=== PATIENT | male | born 1945 | race Caucasian/White ===

== ENCOUNTER → 2021-03-28 08:53 | Outpatient (CLI) | payer OTHER, SELFPAY ==
[2021-03-28 09:44] LABS: Add Manual Diff / Slide Review NO; Basophils Absolute Auto 100 /uL (0-100); Basophils Percent Auto 0.6 % (0-2); Eosinophils Absolute Auto 400 /uL (0-450); Eosinophils Percent Auto 3.3 % (2-4); Hematocrit 39.9 % (41-53); Hemoglobin 13.1 g/dL (13.5-17.5); Lymphocytes Absolute Auto 2100 /uL (1100-4500); Lymphocytes Percent Auto 17.7 % (25-40); Mean Corpuscular HGB Conc 32.9 % (30-36); Mean Corpuscular Hemoglobin 29.8 PG (26-34); Mean Corpuscular Volume 90.6 fL (80-100); Monocytes Absolute Auto 1100 /uL (0-900); Monocytes Percent Auto 9.5 % (3-14); Neutrophils Absolute Auto 8300 /uL (1500-7000); Neutrophils Percent Auto 68.9 % (50-75); Platelet Count 301 X10^3/uL (150-400); Red Blood Cell Count 4.41 X10^6/uL (4.5-5.9); Red Cell Distribution Width 12.3 % (11.6-14.8)
[2021-03-28 10:10] LABS: Erythrocyte Sedimentation Rate 71 MM/HR (0-15)
[2021-03-28 10:26] LABS: Alanine Aminotransferase 15 IU/L (<50); Albumin 3.9 g/dL (3.5-5.0); Albumin Globulin Ratio 1.4 (1.0-2.8); Alkaline Phosphatase 104 U/L (38-126); Aspartate Aminotransferase 25 IU/L (17-59); BUN Creatinine Ratio 24.8 (6-22); Bilirubin Total 0.5 mg/dL (0.2-1.3); Blood Urea Nitrogen 35 mg/dL (9-20); C-Reactive Protein Quant 2.5 mg/dL (<1.0); Calcium 9.5 mg/dL (8.4-10.2); Carbon Dioxide 24 mmol/L (22-32); Chloride 105 mmol/L (98-107); Cholesterol 109 mg/dL (140-199); Creatine Kinase 59 U/L (55-170); Estimated Glomerular Filt Rate 49.1 mL/min (>60); Globulin 2.8 g/dL (1.7-4.1); Glucose 86 mg/dL (80-110); HDL Cholesterol 34 mg/dL (40-60); HEMOLYSIS < 15 (0-50); LDL Cholesterol Calculated 44 mg/dL (<100); Potassium 4.3 mmol/L (3.4-5.1); Sodium 139 mmol/L (137-145); Total Protein 6.7 g/dL (6.3-8.2); Triglycerides 157 mg/dL (35-150)
== END ==
PROVIDERS: Family Provider Internal Medicine; PCP Internal Medicine; Referring Provider Internal Medicine; Visit Provider Internal Medicine
DX: I10 Essential (primary) hypertension (principal); I25.10 Atherosclerotic heart disease of native coronary artery without angina pectoris; M79.10 Myalgia, unspecified site
CPT/HCPCS: 36415; 80053; 80061; 82550; 85025; 85651; 86140

== ENCOUNTER → 2021-10-30 12:13 | Outpatient (CLI) | payer OTHER, SELFPAY ==
--- NOTE | 2021-10-30 12:14 | DI.US.S_ITS ---
PROCEDURE: US SCROTUM INDICATIONS: LEFT HYDROCELE TECHNIQUE: Real-time scanning was performed of the scrotum and testicles, with image documentation. Color and pulse Doppler interrogation was performed of both testicles. COMPARISON: None. FINDINGS: Right: Testicle is normal in size at 4.2 x 2.4 x 3.2 cm, and homogenous in echotexture. Epididymis is normal in overall size and morphology. Small right hydrocele. No varicoceles. Overlying scrotal skin is normal in thickness. Left: Testicle is normal in size at 4.4 x 2.6 x 3.2 cm, and homogeneous in echotexture. Epididymis is normal in overall size and morphology. Moderate-sized left hydrocele. No varicoceles. Overlying scrotal skin is normal in thickness. Doppler: Color and pulse Doppler demonstrate normal and symmetric arterial flow in both testicles. IMPRESSION: Moderate left and small right hydroceles. Dictated by: Ruth Manning MD, PhD on 10/31/2021 at 14:18 Approved by: Ruth Manning MD, PhD on 10/31/2021 at 14:19
== END ==
PROVIDERS: Family Provider Internal Medicine; PCP Internal Medicine; Referring Provider Specialist; Visit Provider Specialist
DX: N43.3 Hydrocele, unspecified (principal)
CPT/HCPCS: 76870

== ENCOUNTER → 2022-04-09 14:42 | Outpatient (CLI) | payer OTHER, SELFPAY ==
[2022-04-09 18:02] LABS: Add Manual Diff / Slide Review NO; Basophils Absolute Auto 100 /uL (0-100); Basophils Percent Auto 0.5 % (0-2); Eosinophils Absolute Auto 300 /uL (0-450); Eosinophils Percent Auto 2.5 % (2-4); Hematocrit 37.8 % (41-53); Hemoglobin 12.7 g/dL (13.5-17.5); Lymphocytes Absolute Auto 1000 /uL (1100-4500); Lymphocytes Percent Auto 8.2 % (25-40); Mean Corpuscular HGB Conc 33.5 % (30-36); Mean Corpuscular Hemoglobin 30.5 PG (26-34); Mean Corpuscular Volume 91.2 fL (80-100); Monocytes Absolute Auto 800 /uL (0-900); Monocytes Percent Auto 6.4 % (3-14); Neutrophils Absolute Auto 9800 /uL (1500-7000); Neutrophils Percent Auto 82.4 % (50-75); Platelet Count 344 X10^3/uL (150-400); Red Blood Cell Count 4.15 X10^6/uL (4.5-5.9); White Blood Cell Count 11.9 X10^3/uL (4.5-11.0)
[2022-04-09 18:39] LABS: Alanine Aminotransferase 26 IU/L (<50); Albumin 3.5 g/dL (3.5-5.0); Alkaline Phosphatase 150 U/L (38-126); Aspartate Aminotransferase 35 IU/L (17-59); BUN Creatinine Ratio 24.4 (6-22); Bilirubin Total 0.6 mg/dL (0.2-1.3); Blood Urea Nitrogen 29 mg/dL (9-20); Calcium 8.7 mg/dL (8.4-10.2); Carbon Dioxide 21 mmol/L (22-32); Chloride 105 mmol/L (98-107); Estimated Glomerular Filt Rate > 60 mL/min (>60); Globulin 3.5 g/dL (1.7-4.1); Glucose 82 mg/dL (80-110); HEMOLYSIS < 15 (0-50); Potassium 4.5 mmol/L (3.4-5.1); Sodium 137 mmol/L (137-145)
[2022-04-09 18:42] LABS: Free T4, Direct Thyroxine 1.36 ng/dL (0.78-2.19)
[2022-04-09 18:56] LABS: Thyroid Stimulating Hormone 1.63 uIU/mL (0.47-4.68)
== END ==
PROVIDERS: Family Provider Internal Medicine; PCP Internal Medicine; Referring Provider Internal Medicine; Visit Provider Internal Medicine
DX: I10 Essential (primary) hypertension (principal); R60.9 Edema, unspecified
CPT/HCPCS: 36415; 80053; 84439; 84443; 85025

== ENCOUNTER → 2022-04-14 10:52 | Outpatient (CLI) | payer OTHER, SELFPAY ==
[2022-04-14 11:50] LABS: COVID19 -Nasal RAPID Negative (Negative)
== END ==
PROVIDERS: Family Provider Internal Medicine; PCP Internal Medicine; Visit Provider Specialist
DX: K40.90 Unilateral inguinal hernia, without obstruction or gangrene, not specified as recurrent (principal); N43.3 Hydrocele, unspecified; Z20.822 Contact with and (suspected) exposure to COVID-19
CPT/HCPCS: 87635; 99215

== ENCOUNTER 2022-04-17 08:36 | Day surgery (SDC) | payer OTHER, SELFPAY ==
[2022-04-15 07:59] VITALS: BMI 27.1
[2022-04-17] VITALS (8 sets, daily range): BP systolic 115–181; BP diastolic 55–81; PULSE 52–60; RESP 14–18; TEMP 36.1–36.7; O2SAT 94–98; BMI 27.1
--- NOTE | 2022-04-17 | PATH_ITS ---
[facility] Accession Number: [id number] . 01 Material submitted: . hernia - RIGHT INGUINAL HERNIA SAC . 01 Diagnosis: Right Inguinal Hernia Sac, Excision: Fibroadipose tissue with a central empty space lined by bland mesothelial cells with reactive changes, consistent with hernia sac. Negative for atypia and malignancy. MRV 04/20/2022 1535 Local . 01 Electronically signed: . Richard Sharma MD, Pathologist NPI- [id number] . 01 Gross description: . The specimen is received in formalin, labeled with the patient's name, , and right inguinal hernia sac, and consists of a pink-fischer, membranous, disrupted sac-like structure with a small amount of attached yellow adipose tissue measuring 3.3 x 0.9 x 0.8 cm. Sectioning reveals a tin, smooth-walled, membranous structure with no lesions identified. Oil Spot Washer sections are submitted in cassette A1. ([id number]) /FRR 04/18/2022 1950 Local . 01 Pathologist provided ICD-10: K40.90 . 01 CPT . 170165 Specimen Comment: A courtesy copy of this report has been sent to [phone] Performed at: 01 [facility] [address] [place] [address] Suite [facility], [place], [place] [id number] MD Ming Longoria MD Phone: [phone]
--- NOTE | 2022-04-17 09:27 | SUR.PREOP ---
patient presents with 2+ pitting edema to RLE which has been chronic for about a month; patient is on furosemide and denies SOB or Chest pain. No current EKG on file; previous history of CABG; notified Anesthesiologist Dr Alexander; EKG orders received and placed. Notified respiratory therapy of need for Pre-op EKG.
--- NOTE | 2022-04-17 09:40 | PM.PREOP ---
Pre-operative Note COVID-19 Criteria for continued procedure: Expected advancement of disease process, Possibility delay results in more complex future surgery or treatment, Increased loss of function, Continuing or worsening of significant or severe pain, Deterioration of the patient's condition or overall health, Delay expected to result in less-positive ultimate med/surg outcome and Non-surgical alternatives not available or appropriate per current SOC Interval Note History & Physical reviewed/Exam performed by Physician: Yes Changes to H&P: No
[2022-04-17] MEDS: CEFAZOLIN 2 GM/100 ML PREMIX 100 ML IV (10:11)
[2022-04-17] MEDS: HYDROCORTISONE 100 MG/2 ML VIAL IV (10:35)
--- NOTE | 2022-04-17 10:42 | SUR.OPER ---
Supine on padded OR bed, head on pillow, arms secured on padded arm boards at <90 degrees abduction, legs uncrossed, safety belt at thigh.
[2022-04-17] MEDS: BUPIVACAINE 0.25% (PF) 30 ML, EPINEPHrine 0.15 MG INJ (10:49)
[2022-04-17] MEDS: BUPIVACAINE LIPOSOME 266 MG/20 ML VIAL INJ (10:50)
[2022-04-17] MEDS: ACETAMINOPHEN IV 1,000 MG/100 ML VIAL 400 MG IV (11:50)
[2022-04-17] MEDS: LACTATED RINGERS 1,000 ML 21 ML IV (12:00)
--- NOTE | 2022-04-17 12:42 | P.OP_ITS ---
Operative Date/Time/Diagnoses Date of procedure: 04/17/22 Time of procedure: 12:42 Pre-op diagnosis: 1. Symptomatic right inguinal hernia. 2. Symptomatic left hydrocele. Post-op diagnosis: same Procedure & Clinicians Procedure: 1. Right indirect inguinal hernia repair with mesh. 2. Left hydrocelectomy. Same procedure as scheduled: Yes Indications: 1. Symptomatic right inguinal hernia. 2. Symptomatic left hydrocele. Surgeon: Rody Roberts Click Yes if Unassisted: Yes Anesthesia Type: General and Local (1.33% Exparel diluted 50%, and 0.5% Marcaine with epinephrine.) Operative Notes Findings: 1. Right indirect inguinal hernia sac with enlarged internal ring. Small associated cord lipoma. 2. Slightly turbid, straw-colored left hydrocele fluid. For by 3 mm scrotal georgie. 3. There was evidence probable previous trauma or repetitive mild trauma resulting in dense adhesions of the tunica vaginalis to the left lateral scrotal wall. Closure Type: primary Specimen(s): other (Right inguinal hernia sac.) Applied: drain(s) (Ten Guamanian round fenestrated drain to bulb self suction.) Estimated Blood Loss (mL): 5 Blood products transfused: none Procedure in detail: The patient was positioned supine and was administered general anesthesia. The lower abdomen, genitalia, and groin were then prepped and draped in sterile fashion. After% Marcaine epinephrine was then used to infiltrate the skin and subcutaneous tissue over the right inguinal canal. Oblique incision was then made sharply through the skin and then the layers of the scalp teens fat and Deepa's fascia were divided using combination blunt cautery technique down to the the external oblique fascia. External oblique fascia was seen to be splayed medially with an enlarged external ring. External oblique fascia was then incised longitudinal its fibers over right inguinal canal. The cord was then carefully isolated and mobilized. The floor of the canal was inspected. He is in meticulous and careful blunt technique the attenuated fibers of the spermatic fascia were then opened longitudinally was fibers at the upper and inner aspect of the cord near the internal ring. The hernia sac was immediately identified. Meticulous blunt and cautery dissection were then continued to separate the hernia sac from attachments within the cord and to important cord structures. The sac was eventually reflected superiorly and laterally to level the internal ring there was further clearing of thin connective tissue attachments in this region. A small cord lipoma was also dissected and from the main cord structures during mobilization of the hernia sac. This small lipoma was dunked in word into the internal ring within the confines of the abdominal cavity. Distal end of the hernia sac was then opened and carefully inspected. Isn't twisted counter-clockwise tightly down to the level of the abdominal wall. A 2- 0 Monocryl was then passed through this level in a suture ligature was then performed. The distal end of the insect is amputated submitted to pathology for return gross examination. The remainder of the peritoneal sac was then infiltrated with diluted 1.33% Exparel. A 2 in x 4 4 in segment of polypropylene mesh was then requested. It was then tailored at its inferior medial margin and was then secured to the right pubic tubercle with a single 3-0 Prolene. Further fitting in tailoring in positioning of the mesh within the inguinal floor and then extending laterally and superiorly was undertaken. A lateral parallel incision was performed to accommodate the exit of the cord at the internal ring. Stellate incisions were made at this site is well to accommodate the cord. The redundant ends laterally were left to cross as tails. 3-0 Prolene was placed where needed for securing in stabilizing the position of the mesh particularly along the inferior margin. Gentle traction was then applied to the right testicle and the cord was repositioned satisfactory within the right inguinal canal. The ileal inguinal nerve had been identified early in the case and had been dissected using blunt sharp dissection from its attachments on cord proper. It was reflected out of the surgical field during the above procedural steps. At this point though the ileal inguinal nerve was reinspected and was gently reposition alongside the cord prior to closure of the external oblique fascia with running 2-0 Monocryl. Additional Exparel was used to infiltrate the cord and the rectus fascia. Deepa's fascia was closed with interrupted 2-0 Monocryl. The skin layer was reapproximated running subcuticular 4-0 Monocryl. The skin surface was then cleaned and dried and there strip of Telfa dressing was tailored to fit over the incision. Over this a medium transparent Op site dressing was applied. The site was then covered with a blue towel. Attention was now turned to the left hemiscrotum. The midline scrotal raphe was infiltrated with solution at% Marcaine with epinephrine. Cautery pen was then used to divide the skin and subcutaneous dartos fascia in the midline. The direction of tissue division was then directed leftward down to the surface of the tunica vaginalis. The appropriate plane was then developed and surface of the tunica vaginalis was from its scrotal wall attachments using blunt cautery and sharp dissection. It was then delivered from the left hemiscrotum. Tunica vaginalis was divided in the midline longitudinally and its contents drained. A 4 x 3 mm scrotal georgie was identified and removed. It was subsequently discarded and not submitted for pathologic inspection. The leaflets of the tunica vaginalis were then reflected posteriorly and assistant bookkeeper fashion. The edges were then reapproximated using running horizontal mattress of 2-0 Monocryl. The left testis was then repositioned in the left hemiscrotum and secured inferiorly to the inner scrotal wall with 2-0 Monocryl. A 2nd stay suture was carefully applied at the superior extent of tunica vaginalis closure and then to the inner aspect of the posterior scrotal wall to prevent postoperative torsion. Next, diluted Exparel solution was then used to infiltrate the inferolateral aspect of the left hemiscrotal wall and skin. A 10 Guamanian fenestrated Davion drain was then brought through this site. Length was trimmed appropriately to fit of within the left hemiscrotum. The drain was secured at the skin level using 2-0 silk and Jamal sandal fashion. The midline Deepa's fascia was then reapproximated using running 2-0 Monocryl. The midline scrotal skin was reapproximated using a running horizontal mattress of 4-0 Monocryl. The skin surface was then cleaned and dried and bacitracin ointment was applied. A generous number of fluff gauze were then applied to the scrotum in the patient's fitted with an athletic supporter. He was then awakened[facility], and transported to recovery in stable condition. Complications: none Post-operative Condition: stable Disposition: PACU Plan for aftercare: Discharge home.
[2022-04-17] MEDS: OXYCODONE IR 5 MG TABLET PO (12:59)
[2022-04-17] MEDS: OXYCODONE/ACETAMINOPHEN 5/325 TABLET 1 TAB PO (13:43)
== END 2022-04-17 13:43 | disposition home or self-care (01) ==
PROVIDERS: Family Provider Internal Medicine; PCP Internal Medicine; Referring Provider Specialist; Visit Provider Specialist
PROC: (CPT 49505; principal; 2022-04-17 09:45)
PROC: (CPT 49505; 2022-04-17 09:45)
DX: K40.90 Unilateral inguinal hernia, without obstruction or gangrene, not specified as recurrent (principal); N43.3 Hydrocele, unspecified; D17.6 Benign lipomatous neoplasm of spermatic cord; N50.89 Other specified disorders of the male genital organs
CPT/HCPCS: 49505; 55040; 82962; 93005; C9290; J0131; J0171; J0690; J1100; J1720; J2250; J2405; J2704; J3010

== ENCOUNTER → 2022-05-18 12:01 | Outpatient (CLI) | payer OTHER, SELFPAY ==
[2022-05-18 13:34] LABS: BUN Creatinine Ratio 24.6 (6-22); Blood Urea Nitrogen 32 mg/dL (9-20); Calcium 9.2 mg/dL (8.4-10.2); Carbon Dioxide 23 mmol/L (22-32); Chloride 103 mmol/L (98-107); Estimated Glomerular Filt Rate 57 mL/min (>60); Glucose 91 mg/dL (80-110); HEMOLYSIS < 15 (0-50); Potassium 4.1 mmol/L (3.4-5.1); Sodium 138 mmol/L (137-145)
== END ==
PROVIDERS: Family Provider Internal Medicine; PCP Internal Medicine; Referring Provider Internal Medicine; Visit Provider Internal Medicine
DX: I10 Essential (primary) hypertension (principal); R60.9 Edema, unspecified
CPT/HCPCS: 36415; 80048

== ENCOUNTER → 2022-07-24 11:55 | Outpatient (CLI) | payer OTHER, SELFPAY ==
[2022-07-24 12:37] LABS: C-Reactive Protein Quant < 0.5 mg/dL (<1.0)
[2022-07-24 12:43] LABS: Erythrocyte Sedimentation Rate 19 MM/HR (0-15)
== END ==
PROVIDERS: Family Provider Internal Medicine; PCP Internal Medicine; Referring Provider Internal Medicine; Visit Provider Internal Medicine
DX: M35.3 Polymyalgia rheumatica (principal)
CPT/HCPCS: 36415; 85651; 86140

== ENCOUNTER → 2022-12-31 16:19 | Outpatient (CLI) | payer OTHER, SELFPAY ==
--- NOTE | 2022-12-31 16:21 | DI.RAD.S_ITS ---
PROCEDURE: XR CHEST 2V INDICATIONS: hemoptysis/cough TECHNIQUE: 2 views of the chest were acquired. COMPARISON: [facility], , CHEST 2 VIEW, 04/23/2010, 10:22. FINDINGS: Surgical changes and devices: Multiple surgical clips project over the mediastinum. Lungs and pleura: Bilateral pleural effusions. Diffuse interstitial prominence. Patchy bibasilar opacities. No focal consolidation. No pneumothorax. Mediastinum: Mediastinal contours are stable. Heart size is normal. Bones and chest wall: No suspicious bony abnormalities. Soft tissues appear unremarkable. IMPRESSION: Diffuse interstitial prominence with patchy bibasilar opacities and bilateral pleural effusions. Findings are nonspecific but may represent pulmonary edema, pulmonary hemorrhage, or infectious/inflammatory process. No focal consolidation seen. Dictated by: Bhavik Whatley M.D. on 01/01/2023 at 10:47 Approved by: Bhavik Whatley M.D. on 01/01/2023 at 10:49
[2022-12-31 17:34] LABS: Add Manual Diff / Slide Review NO; Basophils Absolute Auto 0 /uL (0-100); Basophils Percent Auto 0.1 % (0-2); Eosinophils Absolute Auto 0 /uL (0-450); Eosinophils Percent Auto 0.1 % (2-4); Hematocrit 36.9 % (41-53); Hemoglobin 12.7 g/dL (13.5-17.5); Lymphocytes Absolute Auto 1300 /uL (1100-4500); Lymphocytes Percent Auto 8.5 % (25-40); Mean Corpuscular HGB Conc 34.5 % (30-36); Mean Corpuscular Volume 92.7 fL (80-100); Monocytes Absolute Auto 1800 /uL (0-900); Monocytes Percent Auto 11.9 % (3-14); Neutrophils Absolute Auto 12100 /uL (1500-7000); Neutrophils Percent Auto 79.4 % (50-75); Platelet Count 164 X10^3/uL (150-400); Red Blood Cell Count 3.97 X10^6/uL (4.5-5.9); Red Cell Distribution Width 13.8 % (11.6-14.8); White Blood Cell Count 15.2 X10^3/uL (4.5-11.0)
[2022-12-31 17:44] LABS: INR 1.2 (0.9-1.3); Prothrombin Time 13.2 SECONDS (10.1-12.7)
[2022-12-31 17:47] LABS: PTT Partial Thromboplastin Tim 31 SECONDS (26-36)
[2022-12-31 17:53] LABS: Alanine Aminotransferase 17 IU/L (<50); Albumin 4.1 g/dL (3.5-5.0); Albumin Globulin Ratio 1.2 (1.0-2.8); Alkaline Phosphatase 88 U/L (38-126); Aspartate Aminotransferase 26 IU/L (17-59); BUN Creatinine Ratio 19.2 (6-22); Bilirubin Total 1.1 mg/dL (0.2-1.3); Blood Urea Nitrogen 35 mg/dL (9-20); Carbon Dioxide 25 mmol/L (22-32); Chloride 102 mmol/L (98-107); Estimated Glomerular Filt Rate 38 mL/min (>60); Globulin 3.3 g/dL (1.7-4.1); Glucose 96 mg/dL (80-110); HEMOLYSIS < 15 (0-50); Potassium 4.1 mmol/L (3.4-5.1); Sodium 135 mmol/L (137-145); Total Protein 7.4 g/dL (6.3-8.2)
== END ==
PROVIDERS: Family Provider Internal Medicine; PCP Internal Medicine; Referring Provider Internal Medicine; Visit Provider Internal Medicine
DX: R04.2 Hemoptysis (principal); R05.9 Cough, unspecified; E78.1 Pure hyperglyceridemia; I10 Essential (primary) hypertension
CPT/HCPCS: 36415; 71046; 80053; 85025; 85610; 85730

== ENCOUNTER → 2024-02-23 14:03 | Outpatient (CLI) | payer OTHER, SELFPAY ==
[2024-02-23 15:45] LABS: Add Manual Diff / Slide Review NO; Basophils Absolute Auto 0 /uL (0-100); Basophils Percent Auto 0.3 % (0-2); Eosinophils Absolute Auto 100 /uL (0-450); Eosinophils Percent Auto 0.4 % (2-4); Hematocrit 42.1 % (41-53); Hemoglobin 14.1 g/dL (13.5-17.5); Lymphocytes Absolute Auto 1500 /uL (1100-4500); Lymphocytes Percent Auto 9.8 % (25-40); Mean Corpuscular HGB Conc 33.5 % (30-36); Mean Corpuscular Volume 92.5 fL (80-100); Monocytes Absolute Auto 700 /uL (0-900); Monocytes Percent Auto 4.5 % (3-14); Neutrophils Absolute Auto 13400 /uL (1500-7000); Platelet Count 284 X10^3/uL (150-400); Red Blood Cell Count 4.55 X10^6/uL (4.5-5.9); Red Cell Distribution Width 13.5 % (11.6-14.8); White Blood Cell Count 15.8 X10^3/uL (4.5-11.0)
[2024-02-23 17:42] LABS: HEMOLYSIS < 15 (0-50)
[2024-02-23 17:48] LABS: Alanine Aminotransferase 25 IU/L (<50); Albumin 3.8 g/dL (3.5-5.0); Albumin Globulin Ratio 1.5 (1.0-2.8); Alkaline Phosphatase 97 U/L (38-126); Aspartate Aminotransferase 28 IU/L (17-59); Bilirubin Total 0.4 mg/dL (0.2-1.3); Blood Urea Nitrogen 39 mg/dL (9-20); Calcium 9.4 mg/dL (8.4-10.2); Carbon Dioxide 22 mmol/L (22-32); Chloride 108 mmol/L (98-107); Estimated Glomerular Filt Rate > 60 mL/min (>60); Globulin 2.6 g/dL (1.7-4.1); Glucose 102 mg/dL (80-110); Potassium 4.4 mmol/L (3.4-5.1); Sodium 140 mmol/L (137-145); Total Protein 6.4 g/dL (6.3-8.2)
[2024-02-23 18:20] LABS: Prostate Specific Antigen Scrn 1.44 ng/mL (0.1-4.0)
== END ==
PROVIDERS: Family Provider Internal Medicine; PCP Internal Medicine; Referring Provider Physician Assistant; Visit Provider Physician Assistant
DX: R60.9 Edema, unspecified (principal); Z12.5 Encounter for screening for malignant neoplasm of prostate; Z87.01 Personal history of pneumonia (recurrent); Z87.2 Personal history of diseases of the skin and subcutaneous tissue
CPT/HCPCS: 36415; 80053; 85025; G0103

== ENCOUNTER → 2024-11-20 10:11 | Outpatient (CLI) | payer OTHER, SELFPAY ==
[2024-11-20 11:20] LABS: Alanine Aminotransferase 24 IU/L (<50); Albumin 4.2 g/dL (3.5-5.0); Albumin Globulin Ratio 1.9 (1.0-2.8); Alkaline Phosphatase 70 U/L (38-126); Aspartate Aminotransferase 29 IU/L (17-59); BUN Creatinine Ratio 27.6 (6-22); Bilirubin Total 0.8 mg/dL (0.2-1.3); Blood Urea Nitrogen 34 mg/dL (9-20); Calcium 9.4 mg/dL (8.4-10.2); Carbon Dioxide 21 mmol/L (22-32); Chloride 110 mmol/L (98-107); Estimated Glomerular Filt Rate > 60 mL/min (>60); Globulin 2.2 g/dL (1.7-4.1); Glucose 92 mg/dL (70-99); HEMOLYSIS < 15 (0-50); Potassium 4.3 mmol/L (3.4-5.1); Sodium 141 mmol/L (137-145); Total Protein 6.4 g/dL (6.3-8.2)
[2024-11-20 11:21] LABS: Erythrocyte Sedimentation Rate 8 MM/HR (0-15)
== END ==
LOC: LAB 10:12
PROVIDERS: PCP Internal Medicine; Referring Provider Internal Medicine; Visit Provider Internal Medicine
DX: M35.3 Polymyalgia rheumatica (principal); I10 Essential (primary) hypertension; E78.1 Pure hyperglyceridemia
CPT/HCPCS: 36415; 80053; 85651